=== PATIENT | male | born 1970 | race Caucasian/White ===

== ENCOUNTER 2023-04-23 13:23 | Emergency (ER) | payer MEDICAID ==
[2023-04-23] MEDS ORDERED: HYDR-4902 PO (22:38)
== END 2023-04-23 14:31 | disposition left against medical advice (07) ==
LOC: ER 13:23
DX: R10.9 Unspecified abdominal pain (principal); Z53.21 Procedure and treatment not carried out due to patient leaving prior to being seen by health care provider

== ENCOUNTER 2023-04-23 15:25 | Emergency (ER) | payer MEDICAID ==
[~2023-04-23] VITALS: Ht 172.7 cm; Wt 59.0 kg
[2023-04-23 15:53] LABS: Basophils # (auto) 0 10 ^3/uL (0-0.2); Basophils % (auto) 0.3 % (0.0-2.0); Eosinophils # (auto) 0.1 10 ^3/uL (0-0.8); Eosinophils % (auto) 1.5 % (0.0-7.0); Hemoglobin 15.5 g/dL (13.5-17.5); Lymphocytes # (auto) 1.2 10 ^3/uL (0.4-5.4); Lymphocytes % (auto) 13.3 % (10.0-50.0); Mean Corpuscular Hemoglobin 32.2 pg (28.0-32.0); Mean Corpuscular Hgb Conc. 36.1 g/dL (32.0-36.0); Mean Corpuscular Volume 89.3 fL (80.0-100.0); Monocytes # (auto) 0.6 10 ^3/uL (0-1.3); Monocytes % (auto) 6.5 % (0.0-12.0); Neutrophils # (auto) 7.3 10 ^3/uL (1.6-8.6); Neutrophils % (auto) 78.4 % (37.0-80.0); Red Blood Cells 4.81 10^6/uL (4.5-5.90); White Blood Cell 9.3 10^3/uL (4.4-10.8)
[2023-04-23 16:07] LABS: Alanine Aminotransferase 51 U/L (7-40); Albumin 4.7 g/dL (3.2-4.8); Alkaline Phosphatase 81 U/L (46-116); Anion Gap 4 (5-15); Aspartate Aminotransferase 50 U/L (13-40); BUN/Creatinine Ratio 7.1 (10.0-20.0); Bilirubin, Total 0.8 mg/dL (0.2-1.0); Blood Urea Nitrogen 7 mg/dL (9-23); Calcium 9.5 mg/dL (8.7-10.4); Carbon Dioxide 30 mmol/L (20-30); Chloride 101 mmol/L (98-107); Glucose 171 mg/dL (74-106); Lipase 53 U/L (12-53); Potassium 3.3 mmol/L (3.5-5.1); Sodium 135 mmol/L (136-145)
[2023-04-23 16:08] LABS: Total Protein 7.7 g/dL (5.7-8.2)
[2023-04-23 16:15] LABS: Urine Bacteria NONE SEEN /hpf (None Seen); Urine Blood 1+ /uL (Negative); Urine Clarity Clear (Clear); Urine Color Yellow (Yellow); Urine Hyaline Cast FEW /lpf (0 - 2); Urine Mucus FEW (None Seen); Urine Protein, UAD TRACE (Negative); Urine Specific Gravity 1.013 (1.001-1.035); Urine Urobilinogen Normal (Negative); Urine WBC 1 /hpf (0 - 3); Urine pH 6.5 (5.0-8.0)
[2023-04-23] MEDS ORDERED: KETOROLAC TROMETH 30 MG/ML 1ML VIAL IV ONE (22:30)
[2023-04-23] MEDS ORDERED: HYDR-4902 PO (22:38)
[2023-04-23 22:56] VITALS: BP 141/105; PULSE 89; RESP 18; O2SAT 94
== END 2023-04-23 23:01 | disposition home or self-care (01) ==
LOC: EDBD 15:25 → ER 15:25
DX: K52.9 Noninfective gastroenteritis and colitis, unspecified (principal); K29.70 Gastritis, unspecified, without bleeding
CPT/HCPCS: 36415; 74176; 80053; 81001; 83690; 85025; 96374; 99285; J1885